=== PATIENT | male | born 1950 | race African-American/Black ===

== ENCOUNTER 2016-04-05 08:18 | Outpatient (CLI) | payer MEDICARE, OTHER ==
[2016-04-05 08:52] LABS: #Basophils 0.1 thou/uL (0.0-0.2); #Eosinphils 0.1 thou/uL (0.0-0.7); #Lymphocytes 2.7 thou/uL (1.20-3.40); #Monocytes 0.8 thou/uL (0.11-0.59); #Neutrophils 3.9 thou/uL (1.40-6.50); %Basophils 1.3 % (0.0-1.0); %Eosinophils 1.3 % (0.0-10.0); %Monocytes 10.1 % (0.0-10.0); Hematocrit 46.6 % (42.0-52.0); Mean Platelet Volume 6.5 fL (7.4-10.4); Red Blood Cell (RBC) Count 5.45 mill/uL (4.70-6.10); White Blood Cell (WBC) Count 7.6 thou/uL (4.8-10.8)
[2016-04-05 09:11] LABS: ALT (SGPT) 17 U/L (0-55); AST (SGOT) 20 U/L (5-34); Alkaline Phosphatase 62 U/L (40-150); Anion Gap 14 mmol/L (10-20); BUN (Urea Nitrogen) 23 mg/dL (8.4-25.7); Bilirubin, Total 0.5 mg/dL (0.2-1.2); Calc. Creatinine Clearance 0 mL/min (70-130); Calcium 9.5 mg/dL (7.8-10.44); Carbon Dioxide 23 mmol/L (23-31); Chloride 108 mmol/L (98-107); Estimated GFR-MDRD 56; Globulin 3.8 g/dL (2.4-3.5); Hemoglobin A1c 5.8 % (4.0-6.0); LDL Cholesterol, Calculated 57 mg/dL; Protein, Total 7.9 g/dL (5.8-8.1)
[2016-04-05 18:03] LABS: Microalbumin Urine 3.5 mg/dL (0.5-50.0)
== END 2016-04-05 08:19 | disposition home or self-care (01) ==
LOC: BURLAB 08:18
PROVIDERS: ATTEND Nurse Practitioner Family
DX: Z01.818 Encounter for other preprocedural examination (principal); E78.2 Mixed hyperlipidemia; E88.81 Metabolic syndrome and other insulin resistance; Z79.899 Other long term (current) drug therapy
CPT/HCPCS: 36415; 80053; 80061; 82043; 83036; 85025

== ENCOUNTER 2016-06-28 10:09 | Outpatient (CLI) | payer MEDICARE, OTHER ==
[2016-06-28 11:19] LABS: ALT (SGPT) 17 U/L (8-55); AST (SGOT) 23 U/L (5-34); Albumin 4.3 g/dL (3.4-4.8); Alkaline Phosphatase 79 U/L (40-150); Bilirubin, Direct 0.2 mg/dL (0.1-0.3); Bilirubin, Total 0.5 mg/dL (0.2-1.2); Cardiac Risk 3.9 (Less than 4.5); Cholesterol 122 mg/dl (< 200 Desired); HDL Cholesterol 31 mg/dL (>60 Neg Risk); LDL Cholesterol, Calculated 66 mg/dL; Protein, Total 8.3 g/dL (5.8-8.1); Triglycerides 125 mg/dL (Less than 150)
== END 2016-06-28 10:10 | disposition home or self-care (01) ==
LOC: BURLAB 10:09
PROVIDERS: ATTEND Internal Medicine Cardiovascular Disease
DX: Z01.810 Encounter for preprocedural cardiovascular examination (principal); I25.10 Atherosclerotic heart disease of native coronary artery without angina pectoris; E11.22 Type 2 diabetes mellitus with diabetic chronic kidney disease; N18.3 Chronic kidney disease, stage 3 (moderate)
CPT/HCPCS: 36415; 80061; 80076

== ENCOUNTER 2016-10-03 11:51 | Outpatient (CLI) | payer MEDICARE, OTHER ==
[2016-10-03 12:28] LABS: Hemoglobin A1c 5.8 % (4.0-6.0)
[2016-10-03 12:40] LABS: ALT (SGPT) 18 U/L (8-55); AST (SGOT) 18 U/L (5-34); Albumin 4.2 g/dL (3.4-4.8); Alkaline Phosphatase 74 U/L (40-150); Anion Gap 16 mmol/L (10-20); BUN (Urea Nitrogen) 16 mg/dL (8.4-25.7); Bilirubin, Total 0.6 mg/dL (0.2-1.2); Calc. Creatinine Clearance 0 mL/min (70-130); Calcium 9.7 mg/dL (7.8-10.44); Carbon Dioxide 23 mmol/L (23-31); Cardiac Risk 3.1 (Less than 4.5); Chloride 106 mmol/L (98-107); Cholesterol 119 mg/dl (< 200 Desired); Estimated GFR-MDRD 75; Globulin 3.8 g/dL (2.4-3.5); Glucose 115 mg/dL (80-115); HDL Cholesterol 39 mg/dL (>60 Neg Risk); LDL Cholesterol, Calculated 62 mg/dL; Potassium 4.1 mmol/L (3.5-5.1); Sodium 141 mmol/L (136-145); Triglycerides 89 mg/dL (Less than 150)
== END 2016-10-03 11:52 | disposition home or self-care (01) ==
LOC: BURLAB 11:51
PROVIDERS: ATTEND Family Medicine
DX: E88.81 Metabolic syndrome and other insulin resistance (principal); E78.2 Mixed hyperlipidemia; N18.3 Chronic kidney disease, stage 3 (moderate); R73.09 Other abnormal glucose
CPT/HCPCS: 36415; 80053; 80061; 83036

== ENCOUNTER 2016-11-13 15:23 | Outpatient (CLI) | payer MEDICARE, OTHER ==
--- NOTE | 2016-11-13 17:40 | RAD ---
LEFT HAND THREE VIEWS: Date: 11-13-16 FINDINGS: No fracture was seen. Soft tissue swelling is seen over the fifth MCP joint, but the underlying bone s and joint appear intact. The carpal bones are not displaced optimally, but no abnormalities here w ere appreciated. IMPRESSION: Soft tissue swelling but no acute bony finding. POS: HOME
== END 2016-11-13 15:24 | disposition home or self-care (01) ==
LOC: BURRAD 15:23
PROVIDERS: ATTEND Family Medicine
DX: M25.842 Other specified joint disorders, left hand (principal)

== ENCOUNTER 2017-08-16 13:33 | Inpatient (IN) | payer MEDICARE, OTHER ==
[2017-08-16] MEDS ORDERED: Prevnar 13-Val Conj/PF 0.5 ML SYRINGE IM ONE (17:30)
[2017-08-16] MEDS ORDERED: HYDROcodone/Acetaminophen 10/325 mg Tablet PO PRN (20:16)
[2017-08-16] MEDS ORDERED: Senokot 8.6 MG TAB PO PRN (20:18)
[2017-08-16] MEDS ORDERED: Dextrose 50% Abboject 50 ML SYRINGE SLOW IVP PRN (20:20)
[2017-08-16] MEDS ORDERED: Dextrose 5% in Water 1,000 ML IV PRN (20:20)
[2017-08-16] MEDS ORDERED: HumaLOG 300 UNITS/3 ML VIAL SC PRN ×2 (20:20)
[2017-08-16] MEDS: HYDROcodone/Acetaminophen 10/325 mg Tablet PO PRN (20:26)
[2017-08-16] MEDS: Pregabalin 75 MG CAP PO SCH (22:01)
[2017-08-16] MEDS: Aspirin 325 MG TAB PO SCH (22:01)
[2017-08-16] MEDS: Rosuvastatin 10 MG TAB PO SCH (22:01)
--- NOTE | 2017-08-17 02:44 | HP ---
DATE OF ADMISSION: 08/16/2017 REASON FOR ADMISSION: Continued rehab status post right hip replacement. HISTORY OF PRESENT ILLNESS: Patient is extremely pleasant 66-year-old -Greek male with a l ongstanding history of progressive degenerative arthritis of the right hip. He failed a conservative treatment and thus underwent elective right hip replacement. Postoperatively, patient had no signif icant complications, but had significant pain and weakness and thus required further inpatient stay i n a swing bed assisted facility and thus was transferred to [facility] for continued physical therapy and occupational therapy. PAST MEDICAL HISTORY: Includes non-insulin dependent diabetes mellitus, gout, osteoarthritis, mild r enal insufficiency, abscess to the finger requiring I&D antibiotics with MRSA history. PAST SURGICAL HISTORY: Includes a previous back surgery and right knee total replacement one year ag o. CURRENT MEDICATIONS: Include amlodipine 10 mg 1 tablet daily, Protonix 40 mg daily, metformin 500 mg daily, hydrochlorothiazide 25 mg daily, Crestor 20 mg at bedtime, Lyrica 150 mg p.o. b.i.d., Celebre x 200 mg daily. ALLERGIES: No known drug allergies. FAMILY HISTORY: Noncontributory. SOCIAL HISTORY: Patient has no significant history of alcohol or social drug use. He is independent in all activities of daily living but retired prior to his recent hospital admission. REVIEW OF SYSTEMS: Patient denies any URI-like symptoms, no recent visual changes. No chest pain or shortness of breath, no fevers, chills or night sweats. No nausea, vomiting or diarrhea. Appetite has been good with normal bowel movements. Patient denies any recent rash. He denies depression. John salazar does report some slight decreased sensation to the extremities and some paresthesias in her extremi ties for which he takes as Lyrica. Patient denies any dysuria, hematuria or change in urinary freque ncy. No increased back pain. Patient reports his hip pain has been controlled with current medicati ons with occasional mild exacerbations. PHYSICAL EXAMINATION: GENERAL: -Greek male, alert and oriented x3, in no obvious distress. VITAL SIGNS: Temperature 97.7, pulse 84, respiratory rate 16, O2 is 98% on room air, blood pressure 133/71. HEENT: Atraumatic, normocephalic. Extraocular movements are intact. Pupils are equal, round, and r eactive to light and accommodation. NECK: Supple, no masses palpated. CHEST: Clear to auscultation bilaterally without rales or wheezes. HEART: Regular rate and rhythm without murmurs, rubs, nor gallops. ABDOMEN: Soft, nontender, nondistended, no masses were palpated. No tenderness to palpation. Bowel sounds are positive in all 4 quadrants. EXTREMITIES: Right lateral hip had incision site that was bandaged well without any obvious signific ant drainage. There was trace edema at the ankles bilaterally, right slightly greater than left. No calf tenderness was noted and Homans' was negative. ASSESSMENT AND PLAN: 1. Status post right hip replacement. PT and OT has been ordered. Patient will have DVT prophylaxi s with aspirin 325 mg p.o. b.i.d. as well as SCDs to the lower extremities. 2. Diabetes mellitus. We will continue patient on metformin. We will do Accu-Cheks before meals an d at bedtime with a sliding scale insulin as needed. 3. Hypertension, presently controlled. We will continue his amlodipine and hydrochlorothiazide. DISPOSITION: Plan is for the patient to be discharged to home after he improves, likely will need ap proximately 7-10 days of inpatient therapy.
[2017-08-17] MEDS: HYDROcodone/Acetaminophen 10/325 mg Tablet PO PRN ×2 (09:05→15:10)
[2017-08-17] MEDS: metFORMIN 500 MG TAB PO SCH (09:06)
[2017-08-17] MEDS: Amlodipine 10 MG TAB PO SCH (09:06)
[2017-08-17] MEDS: Pregabalin 75 MG CAP PO SCH ×2 (09:07→20:28)
[2017-08-17] MEDS: Aspirin 325 MG TAB PO SCH ×2 (09:09→20:27)
[2017-08-17] MEDS: Hydrochlorothiazide 25 MG TAB PO SCH (09:09)
[2017-08-17] MEDS: Rosuvastatin 10 MG TAB PO SCH (20:27)
[2017-08-18] MEDS: HYDROcodone/Acetaminophen 10/325 mg Tablet PO PRN (06:31)
[2017-08-18] MEDS: Amlodipine 10 MG TAB PO SCH (08:59)
[2017-08-18] MEDS: Aspirin 325 MG TAB PO SCH ×2 (09:00→20:26)
[2017-08-18] MEDS: Hydrochlorothiazide 25 MG TAB PO SCH (09:00)
[2017-08-18] MEDS: metFORMIN 500 MG TAB PO SCH (09:00)
[2017-08-18] MEDS: Pregabalin 75 MG CAP PO SCH ×2 (09:01→20:26)
[2017-08-18] MEDS: Rosuvastatin 10 MG TAB PO SCH (20:25)
[2017-08-18] MEDS: Senokot 8.6 MG TAB PO PRN (20:34)
[2017-08-19] MEDS: HYDROcodone/Acetaminophen 10/325 mg Tablet PO PRN ×2 (06:08→19:43)
[2017-08-19] MEDS: Senokot 8.6 MG TAB PO PRN (09:06)
[2017-08-19] MEDS: Amlodipine 10 MG TAB PO SCH (09:06)
[2017-08-19] MEDS: Hydrochlorothiazide 25 MG TAB PO SCH (09:07)
[2017-08-19] MEDS: Pregabalin 75 MG CAP PO SCH ×2 (09:07→21:15)
[2017-08-19] MEDS: Aspirin 325 MG TAB PO SCH ×2 (09:08→21:15)
[2017-08-19] MEDS: metFORMIN 500 MG TAB PO SCH (09:08)
[2017-08-19] MEDS: Rosuvastatin 10 MG TAB PO SCH (21:15)
[2017-08-20] MEDS: HYDROcodone/Acetaminophen 10/325 mg Tablet PO PRN ×2 (05:49→20:39)
[2017-08-20 05:57] VITALS: BMI 37.8
[2017-08-20] MEDS: Pregabalin 75 MG CAP PO SCH ×2 (08:33→20:36)
[2017-08-20] MEDS: Amlodipine 10 MG TAB PO SCH (08:33)
[2017-08-20] MEDS: metFORMIN 500 MG TAB PO SCH (08:33)
[2017-08-20] MEDS: Aspirin 325 MG TAB PO SCH ×2 (08:33→20:36)
[2017-08-20] MEDS: Hydrochlorothiazide 25 MG TAB PO SCH (08:33)
[2017-08-20] MEDS: Senokot 8.6 MG TAB PO PRN (08:34)
[2017-08-20] MEDS: Milk Of Magnesia 30 ML UDCUP PO PRN (08:34)
[2017-08-20] MEDS: Rosuvastatin 10 MG TAB PO SCH (20:36)
[2017-08-21] MEDS: HYDROcodone/Acetaminophen 10/325 mg Tablet PO PRN ×2 (08:08→17:01)
[2017-08-21] MEDS: Amlodipine 10 MG TAB PO SCH (08:08)
[2017-08-21] MEDS: Pregabalin 75 MG CAP PO SCH ×2 (08:09→20:34)
[2017-08-21] MEDS: Aspirin 325 MG TAB PO SCH ×2 (08:10→20:33)
[2017-08-21] MEDS: Senokot 8.6 MG TAB PO PRN (08:10)
[2017-08-21] MEDS: Hydrochlorothiazide 25 MG TAB PO SCH (08:10)
[2017-08-21] MEDS: metFORMIN 500 MG TAB PO SCH (08:10)
[2017-08-21] MEDS: Rosuvastatin 10 MG TAB PO SCH (20:34)
[2017-08-22] MEDS: HYDROcodone/Acetaminophen 10/325 mg Tablet PO PRN ×3 (00:28→17:32)
[2017-08-22] MEDS: Pregabalin 75 MG CAP PO SCH ×2 (09:08→20:04)
[2017-08-22] MEDS: Aspirin 325 MG TAB PO SCH ×2 (09:08→20:04)
[2017-08-22] MEDS: Senokot 8.6 MG TAB PO PRN (09:09)
[2017-08-22] MEDS: metFORMIN 500 MG TAB PO SCH (09:09)
[2017-08-22] MEDS: Amlodipine 10 MG TAB PO SCH (09:10)
[2017-08-22] MEDS: Hydrochlorothiazide 25 MG TAB PO SCH (09:10)
[2017-08-22] MEDS: Rosuvastatin 10 MG TAB PO SCH (20:03)
[2017-08-23] MEDS: HYDROcodone/Acetaminophen 10/325 mg Tablet PO PRN ×2 (08:11→20:26)
[2017-08-23] MEDS: Senokot 8.6 MG TAB PO PRN (08:11)
[2017-08-23] MEDS: Hydrochlorothiazide 25 MG TAB PO SCH (08:12)
[2017-08-23] MEDS: Amlodipine 10 MG TAB PO SCH (08:12)
[2017-08-23] MEDS: metFORMIN 500 MG TAB PO SCH (08:12)
[2017-08-23] MEDS: Pregabalin 75 MG CAP PO SCH ×2 (08:12→20:27)
[2017-08-23] MEDS: Aspirin 325 MG TAB PO SCH ×2 (08:12→20:28)
[2017-08-23] MEDS: Rosuvastatin 10 MG TAB PO SCH (20:28)
[2017-08-24] MEDS: HYDROcodone/Acetaminophen 10/325 mg Tablet PO PRN ×2 (07:15→20:18)
[2017-08-24] MEDS: Aspirin 325 MG TAB PO SCH ×2 (08:04→20:17)
[2017-08-24] MEDS: Amlodipine 10 MG TAB PO SCH (08:05)
[2017-08-24] MEDS: Hydrochlorothiazide 25 MG TAB PO SCH (08:05)
[2017-08-24] MEDS: metFORMIN 500 MG TAB PO SCH ×2 (08:05→08:06)
[2017-08-24] MEDS: Milk Of Magnesia 30 ML UDCUP PO PRN ×2 (08:06→20:17)
[2017-08-24] MEDS ORDERED: Pregabalin 75 MG CAP ONE (09:00)
[2017-08-24] MEDS: Pregabalin 75 MG CAP PO SCH ×2 (09:24→20:19)
[2017-08-24] MEDS: Senokot 8.6 MG TAB PO PRN (20:17)
[2017-08-24] MEDS: Rosuvastatin 10 MG TAB PO SCH (20:18)
[2017-08-25] MEDS: Amlodipine 10 MG TAB PO SCH (08:20)
[2017-08-25] MEDS: Hydrochlorothiazide 25 MG TAB PO SCH (08:22)
[2017-08-25] MEDS: Pregabalin 75 MG CAP PO SCH ×2 (08:22→20:45)
[2017-08-25] MEDS: metFORMIN 500 MG TAB PO SCH (08:22)
[2017-08-25] MEDS: Aspirin 325 MG TAB PO SCH ×2 (08:22→20:51)
[2017-08-25] MEDS: Milk Of Magnesia 30 ML UDCUP PO PRN (08:28)
[2017-08-25] MEDS: Senokot 8.6 MG TAB PO PRN (08:28)
[2017-08-25] MEDS: HYDROcodone/Acetaminophen 10/325 mg Tablet PO PRN ×2 (08:29→20:44)
[2017-08-25] MEDS: Rosuvastatin 10 MG TAB PO SCH (20:51)
[2017-08-26] MEDS: Pregabalin 75 MG CAP PO SCH ×2 (08:54→21:09)
[2017-08-26] MEDS: Amlodipine 10 MG TAB PO SCH (08:55)
[2017-08-26] MEDS: metFORMIN 500 MG TAB PO SCH (08:55)
[2017-08-26] MEDS: Hydrochlorothiazide 25 MG TAB PO SCH (08:56)
[2017-08-26] MEDS: HYDROcodone/Acetaminophen 10/325 mg Tablet PO PRN (09:02)
[2017-08-26] MEDS: Aspirin 325 MG TAB PO SCH ×2 (09:06→21:04)
[2017-08-26] MEDS: Rosuvastatin 10 MG TAB PO SCH (21:02)
[2017-08-27 05:25] VITALS: TEMP 99.3
[2017-08-27] MEDS: Senokot 8.6 MG TAB PO PRN (08:30)
[2017-08-27] MEDS: Pregabalin 75 MG CAP PO SCH (08:30)
[2017-08-27] MEDS: Amlodipine 10 MG TAB PO SCH (08:31)
[2017-08-27] MEDS: Hydrochlorothiazide 25 MG TAB PO SCH (08:31)
[2017-08-27] MEDS: metFORMIN 500 MG TAB PO SCH (08:31)
[2017-08-27] MEDS: HYDROcodone/Acetaminophen 10/325 mg Tablet PO PRN (08:32)
[2017-08-27 08:33] VITALS: BP 116/79
[2017-08-27] MEDS: Aspirin 325 MG TAB PO SCH (09:58)
== END 2017-08-27 15:30 | disposition home or self-care (01) | DRG 561 ==
LOC: UNDOADMIN 16:25 → BURMED 16:25
PROVIDERS: ADMIT Family Medicine; ATTEND Family Medicine
DX: Z47.1 Aftercare following joint replacement surgery (principal); Z96.641 Presence of right artificial hip joint; I10 Essential (primary) hypertension; E11.9 Type 2 diabetes mellitus without complications; M10.9 Gout, unspecified; R53.1 Weakness; G89.18 Other acute postprocedural pain; Z86.14 Personal history of Methicillin resistant Staphylococcus aureus infection; Z79.84 Long term (current) use of oral hypoglycemic drugs; Z79.899 Other long term (current) drug therapy; Z96.651 Presence of right artificial knee joint
CPT/HCPCS: 36416; G8978-GP-CK; G8979-GP-CI; G8987-GO-CK; G8988-GO-CI

== ENCOUNTER 2020-05-06 20:24 | Emergency (ER) | payer MEDICARE, OTHER ==
[2020-05-06] MEDS ORDERED: Ibuprofen 800 MG TAB ONE (21:08)
[2020-05-06 21:24] LABS: ALT (SGPT) 33 U/L (8-55); AST (SGOT) 34 U/L (5-34); Albumin 4.2 g/dL (3.4-4.8); Alkaline Phosphatase 52 U/L (40-110); Anion Gap 17 mmol/L (10-20); BUN (Urea Nitrogen) 23 mg/dL (8.4-25.7); Bilirubin, Total 0.4 mg/dL (0.2-1.2); Calc. Creatinine Clearance 0 mL/min (70-130); Calcium 9.2 mg/dL (7.8-10.44); Carbon Dioxide 22 mmol/L (23-31); Chloride 106 mmol/L (98-107); Glucose 149 mg/dL (80-115); Protein, Total 8.2 g/dL (5.8-8.1); Sodium 141 mmol/L (136-145)
[2020-05-06 21:25] LABS: Hemoglobin 15.5 g/dL (14.0-18.0); Mean Corpuscular HGB CONC 33.1 g/dL (32.0-36.0); Mean Corpuscular Hemoglobin 29.6 pg (27.0-31.0); Mean Corpuscular Volume 89.4 fL (78.0-98.0); Mean Platelet Volume 7.5 fL (7.4-10.4); Platelet Count 204 thou/uL (130-400); RBC Distribution Width 13.1 % (11.5-14.5); Red Blood Cell (RBC) Count 5.25 mill/uL (4.70-6.10); White Blood Cell (WBC) Count 8.1 thou/uL (4.8-10.8)
[2020-05-06 21:36] LABS: Band 4 % (5-11); Eosinophils 1 % (0-10); Lymphocytes 17 % (21-51); MDiff Complete? YES; Metamyelocyte 2 % (0-0); Monocytes 10 % (0-10); Neutrophil 63 % (42-75); Platelet Morphology Comment Appears Adequate; RBC Morphology Normal; Reactive Lymphocytes 3 % (0-10); Vacuoles SLIGHT
[2020-05-06 21:41] LABS: CKMB 0.5 ng/mL (0-6.6)
== END 2020-05-06 23:00 | disposition short-term general hospital (02) ==
LOC: BURERS 20:24
DX: R50.9 Fever, unspecified (principal); R77.8 Other specified abnormalities of plasma proteins; R60.0 Localized edema; K43.9 Ventral hernia without obstruction or gangrene; E11.9 Type 2 diabetes mellitus without complications; E78.5 Hyperlipidemia, unspecified; I10 Essential (primary) hypertension; F17.220 Nicotine dependence, chewing tobacco, uncomplicated; R06.02 Shortness of breath
CPT/HCPCS: 71045; 80053; 82553; 83605; 83880; 84484; 85025; 87040; 87804; 93005; 94760

== ENCOUNTER 2021-06-03 12:41 | Inpatient (IN) | payer MEDICARE, OTHER, MEDICAID ==
[2021-06-03] MEDS ORDERED: Icosapent Ethyl [Vascepa] 1 GM Capsule PO SCH (17:15)
[2021-06-03] MEDS: metFORMIN 500 MG TAB PO SCH (17:34)
[2021-06-03] MEDS: Pregabalin 75 MG CAP PO SCH (20:47)
[2021-06-03] MEDS: Acetaminophen 325 MG TAB PO PRN (20:48)
[2021-06-03] MEDS: Aspirin 81 mg Enteric Coated Tablet PO SCH (20:48)
[2021-06-03] MEDS: Rosuvastatin 10 MG TAB PO SCH (20:48)
[2021-06-04 05:53] LABS: ALT (SGPT) 20 U/L (8-55); AST (SGOT) 28 U/L (5-34); Albumin 3.7 g/dL (3.4-4.8); Alkaline Phosphatase 71 U/L (40-110); Anion Gap 17 mmol/L (10-20); BUN (Urea Nitrogen) 27 mg/dL (8.4-25.7); Bilirubin, Total 0.6 mg/dL (0.2-1.2); Calc. Creatinine Clearance 102 mL/min (70-130); Calcium 9.3 mg/dL (7.8-10.44); Carbon Dioxide 24 mmol/L (23-31); Chloride 102 mmol/L (98-107); Globulin 3.9 g/dL (2.4-3.5); Glucose 122 mg/dL (80-115); Potassium 3.8 mmol/L (3.5-5.1); Protein, Total 7.6 g/dL (5.8-8.1); Sodium 139 mmol/L (136-145); Uric Acid 5.9 mg/dL (3.5-7.2)
[2021-06-04 06:01] LABS: #Basophils 0.1 thou/uL (0.0-0.2); #Eosinphils 0.1 thou/uL (0.0-0.7); #Neutrophils 4.3 thou/uL (1.40-6.50); %Basophils 1.5 % (0.0-1.0); %Eosinophils 1.5 % (0.0-10.0); %Lymphocytes 35.2 % (21.0-51.0); %Monocytes 11.4 % (0.0-10.0); %Neutrophils 50.5 % (42.0-75.0); Hemoglobin 13.1 g/dL (14.0-18.0); Mean Corpuscular Hemoglobin 29.7 pg (27.0-31.0); Mean Corpuscular Volume 89.8 fL (78.0-98.0); Mean Platelet Volume 7.3 fL (7.4-10.4); Platelet Count 262 thou/uL (130-400); RBC Distribution Width 13.7 % (11.5-14.5); Red Blood Cell (RBC) Count 4.43 mill/uL (4.70-6.10); White Blood Cell (WBC) Count 8.6 thou/uL (4.8-10.8)
[2021-06-04] MEDS ORDERED: Icosapent Ethyl [Vascepa] 1 GM Capsule PO SCH (08:00)
[2021-06-04] MEDS: Aspirin 81 mg Enteric Coated Tablet PO SCH ×2 (08:18→21:04)
[2021-06-04] MEDS: Tamsulosin HCl 0.4 MG CAP PO SCH (08:18)
[2021-06-04] MEDS: metFORMIN 500 MG TAB PO SCH ×2 (08:18→16:47)
[2021-06-04] MEDS: Pregabalin 75 MG CAP PO SCH ×2 (08:19→21:04)
[2021-06-04] MEDS: NIFEdipine XL 30 MG TAB PO SCH (08:20)
[2021-06-04] MEDS: Colchicine 0.6 MG TAB PO SCH (08:20)
[2021-06-04] MEDS ORDERED: ETODOLAC 400 MG PO SCH (09:00)
[2021-06-04] MEDS: traMADol HCl 50 MG TAB PO PRN ×3 (10:32→22:55)
[2021-06-04] MEDS: Acetaminophen 325 MG TAB PO PRN ×3 (10:33→21:04)
[2021-06-04] MEDS: Rosuvastatin 10 MG TAB PO SCH (21:03)
[2021-06-05] MEDS: Acetaminophen 325 MG TAB PO PRN ×3 (05:54→19:38)
[2021-06-05] MEDS: traMADol HCl 50 MG TAB PO PRN ×2 (05:54→19:37)
[2021-06-05] MEDS: metFORMIN 500 MG TAB PO SCH ×2 (10:08→17:34)
[2021-06-05] MEDS: NIFEdipine XL 30 MG TAB PO SCH (10:09)
[2021-06-05] MEDS: Tamsulosin HCl 0.4 MG CAP PO SCH (10:09)
[2021-06-05] MEDS: Aspirin 81 mg Enteric Coated Tablet PO SCH ×2 (10:09→21:08)
[2021-06-05] MEDS: Pregabalin 75 MG CAP PO SCH ×2 (10:10→21:07)
[2021-06-05] MEDS: Colchicine 0.6 MG TAB PO SCH (10:11)
[2021-06-05] MEDS: Ondansetron ODT 4 MG TAB PO PRN (20:08)
[2021-06-05] MEDS: Rosuvastatin 10 MG TAB PO SCH (21:08)
[2021-06-06] MEDS: traMADol HCl 50 MG TAB PO PRN ×2 (05:07→17:10)
[2021-06-06] MEDS: Acetaminophen 325 MG TAB PO PRN ×2 (05:08→17:10)
[2021-06-06] MEDS: metFORMIN 500 MG TAB PO SCH ×2 (07:42→17:09)
[2021-06-06] MEDS: Colchicine 0.6 MG TAB PO SCH (07:42)
[2021-06-06] MEDS: Pregabalin 75 MG CAP PO SCH ×2 (07:43→21:37)
[2021-06-06] MEDS: NIFEdipine XL 30 MG TAB PO SCH (07:43)
[2021-06-06] MEDS: Tamsulosin HCl 0.4 MG CAP PO SCH (07:43)
[2021-06-06] MEDS: Aspirin 81 mg Enteric Coated Tablet PO SCH ×2 (07:43→21:37)
[2021-06-06] MEDS: Ondansetron ODT 4 MG TAB PO PRN (13:09)
[2021-06-06 16:15] VITALS: BMI 39.2
[2021-06-06] MEDS: Rosuvastatin 10 MG TAB PO SCH (21:37)
[2021-06-07] MEDS: Acetaminophen 325 MG TAB PO PRN ×3 (01:22→18:02)
[2021-06-07] MEDS: traMADol HCl 50 MG TAB PO PRN ×3 (01:23→18:02)
[2021-06-07] MEDS: Aspirin 81 mg Enteric Coated Tablet PO SCH ×2 (08:59→21:39)
[2021-06-07] MEDS: NIFEdipine XL 30 MG TAB PO SCH (08:59)
[2021-06-07] MEDS: Tamsulosin HCl 0.4 MG CAP PO SCH (08:59)
[2021-06-07] MEDS: metFORMIN 500 MG TAB PO SCH ×2 (08:59→16:47)
[2021-06-07] MEDS: Fish Oil 1,000 MG CAP PO SCH (08:59)
[2021-06-07] MEDS: Pregabalin 75 MG CAP PO SCH ×2 (09:00→21:39)
[2021-06-07] MEDS: Colchicine 0.6 MG TAB PO SCH (09:00)
[2021-06-07] MEDS: Rosuvastatin 10 MG TAB PO SCH (21:39)
[2021-06-08] MEDS: Aspirin 81 mg Enteric Coated Tablet PO SCH ×2 (08:50→20:06)
[2021-06-08] MEDS: NIFEdipine XL 30 MG TAB PO SCH (08:51)
[2021-06-08] MEDS: metFORMIN 500 MG TAB PO SCH ×2 (08:51→18:23)
[2021-06-08] MEDS: Tamsulosin HCl 0.4 MG CAP PO SCH (08:51)
[2021-06-08] MEDS: Pregabalin 75 MG CAP PO SCH ×2 (08:51→20:06)
[2021-06-08] MEDS: Colchicine 0.6 MG TAB PO SCH (08:51)
[2021-06-08] MEDS: Fish Oil 1,000 MG CAP PO SCH (08:51)
[2021-06-08] MEDS: Rosuvastatin 10 MG TAB PO SCH (20:05)
[2021-06-09 05:03] VITALS: BP 128/68; TEMP 99.4
[2021-06-09] MEDS: Tamsulosin HCl 0.4 MG CAP PO SCH (07:49)
[2021-06-09] MEDS: NIFEdipine XL 30 MG TAB PO SCH (07:49)
[2021-06-09] MEDS: Aspirin 81 mg Enteric Coated Tablet PO SCH (07:50)
[2021-06-09] MEDS: Colchicine 0.6 MG TAB PO SCH (07:50)
[2021-06-09] MEDS: Fish Oil 1,000 MG CAP PO SCH (07:50)
[2021-06-09] MEDS: metFORMIN 500 MG TAB PO SCH (07:51)
[2021-06-09] MEDS: Pregabalin 75 MG CAP PO SCH (07:51)
== END 2021-06-09 11:25 | disposition home or self-care (01) | DRG 561 ==
LOC: BURMED 16:35
PROVIDERS: ADMIT Family Medicine; ATTEND Family Medicine
DX: Z47.1 Aftercare following joint replacement surgery (principal); I10 Essential (primary) hypertension; E78.5 Hyperlipidemia, unspecified; N40.0 Benign prostatic hyperplasia without lower urinary tract symptoms; E66.01 Morbid (severe) obesity due to excess calories; M10.9 Gout, unspecified; E11.42 Type 2 diabetes mellitus with diabetic polyneuropathy; K21.9 Gastro-esophageal reflux disease without esophagitis; Z83.3 Family history of diabetes mellitus; Z79.899 Other long term (current) drug therapy; Z79.84 Long term (current) use of oral hypoglycemic drugs; Z79.82 Long term (current) use of aspirin; Z79.891 Long term (current) use of opiate analgesic; Z82.49 Family history of ischemic heart disease and other diseases of the circulatory system
CPT/HCPCS: 36415; 36416; 80053; 84550; 85025; Q0162

== ENCOUNTER 2024-01-10 16:02 | Inpatient (IN) | payer MEDICARE ==
[2024-01-14] MEDS ORDERED: Acetaminophen 325 MG TAB PO PRN (22:07)
[2024-01-14] MEDS ORDERED: HYDROcodone/Acetaminophen 5/325 mg Tablet PO PRN (22:07)
[2024-01-14 22:27] VITALS: BMI 36.3
[2024-01-15] MEDS ORDERED: Acetaminophen 325 MG TAB PO PRN ×2 (05:18→16:29)
[2024-01-15] MEDS ORDERED: Ondansetron ODT 4 MG TAB PO PRN (05:20)
[2024-01-15] MEDS: Insulin Lispro 100 UNIT/ML 10 ML VIAL SQ SCH (07:34)
[2024-01-15] MEDS: Senokot S 8.6-50 MG TAB PO SCH (08:02)
[2024-01-15] MEDS: Polyethylene Glycol 3350 17 GM Packet PO SCH (08:02)
[2024-01-15] MEDS: Aspirin 81 mg Enteric Coated Tablet PO SCH (08:02)
[2024-01-15] MEDS: HYDROcodone/Acetaminophen 5/325 mg Tablet PO PRN (08:03)
[2024-01-15] MEDS: Ferrous Gluconate 324 MG TAB PO SCH (08:03)
[2024-01-15] MEDS: Icosapent Ethyl 1 GM CAPSULE PO SCH (08:03)
[2024-01-15] MEDS: Tamsulosin HCl 0.4 MG CAP PO SCH (08:03)
[2024-01-15] MEDS: Furosemide 40 MG TAB PO SCH (08:04)
[2024-01-15] MEDS: Carvedilol 25 MG TAB PO SCH (08:04)
[2024-01-15] MEDS: Gabapentin 300 MG CAP PO SCH ×2 (08:04→20:08)
[2024-01-15] MEDS: Pantoprazole DR 40 MG TAB PO SCH (08:04)
[2024-01-15] MEDS: Amoxicillin/Potassium Clav 875 MG TAB PO SCH (08:05)
[2024-01-15] MEDS ORDERED: FLU (Fluad Triv) TS24-25 (65UP)/MF59C/PF 45 MCG/0.5 ML Syringe IM ONE (09:00)
[2024-01-15] MEDS: FLU (Fluad Triv) TS24-25 (65UP)/MF59C/PF 45 MCG/0.5 ML Syringe IM ONE (11:47)
[2024-01-15 11:48] VITALS: BMI 36.3
[2024-01-15] MEDS ORDERED: Glucagon 1 MG/ML KIT IM PRN (14:06)
[2024-01-15] MEDS ORDERED: Dextrose 5% in Water 1,000 ML IV PRN (14:06)
[2024-01-15] MEDS ORDERED: Dextrose 50% Abboject 50 ML SYRINGE SLOW IVP PRN (14:06)
[2024-01-15] MEDS: Insulin Regular, Human 100 UNIT/ML 10 ML VIAL SC PRN (16:53)
[2024-01-15] MEDS: Rosuvastatin 10 MG TAB PO SCH (20:07)
[2024-01-15] MEDS: Lantus 1000 UNITS/10 ML VIAL SC SCH (20:07)
[2024-01-16 05:08] LABS: #Basophils 0.1 thou/uL (0.0-0.2); #Eosinophils 0.1 thou/uL (0.0-0.7); #Lymphocytes 2.1 thou/uL (1.20-3.40); #Monocytes 0.8 thou/uL (0.11-0.59); #Neutrophils 4.7 thou/uL (1.40-6.50); %Basophils 0.8 % (0.0-1.0); %Eosinophils 1.4 % (0.0-10.0); %Lymphocytes 27.2 % (21.0-51.0); %Monocytes 10.5 % (0.0-10.0); %Neutrophils 60.1 % (42.0-75.0); Hematocrit 31.3 % (42.0-52.0); Mean Corpuscular HGB CONC 31.8 g/dL (32.0-36.0); Mean Corpuscular Hemoglobin 27.8 pg (27.0-31.0); Mean Corpuscular Volume 87.3 fl (78.0-98.0); Mean Platelet Volume 6.1 fL (7.4-10.4); Platelet Count 414 10x3/uL (130-400); RBC Distribution Width 13.9 % (11.5-14.5); Red Blood Cell (RBC) Count 3.59 mill/uL (4.70-6.10); White Blood Cell (WBC) Count 7.8 10x3/uL (4.8-10.8)
[2024-01-16 05:57] LABS: ALT (SGPT) 12 U/L (8-55); AST (SGOT) 21 U/L (5-34); Albumin 2.5 g/dL (3.4-4.8); Alkaline Phosphatase 130 U/L (40-110); Anion Gap 16 mmol/L (10-20); BUN (Urea Nitrogen) 41 mg/dL (8.4-25.7); Bilirubin, Total 0.4 mg/dL (0.2-1.2); Calc. Creatinine Clearance 50 mL/min (70-130); Calcium 8.8 mg/dL (7.8-10.44); Carbon Dioxide 22 mmol/L (23-31); Chloride 107 mmol/L (98-107); Estimated GFR 30; Glucose 168 mg/dL (83-110); Potassium 4.6 mmol/L (3.5-5.1); Protein, Total 7.5 g/dL (5.8-8.1); Sodium 140 mmol/L (136-145)
[2024-01-23 06:11] VITALS: BP 147/74; TEMP 98.5
== END 2024-01-23 13:30 | disposition home or self-care (01) | DRG 945 ==
LOC: BURMED 01-14 21:03
PROVIDERS: ADMIT Family Medicine; ATTEND Family Medicine
PROC: F07Z9ZZ Gait Training/Functional Ambulation Treatment (ICD-10-PCS; principal; 2024-01-17)
DX: R53.81 Other malaise (principal); I13.0 Hypertensive heart and chronic kidney disease with heart failure and stage 1 through stage 4 chronic kidney disease, or unspecified chronic kidney disease; I50.32 Chronic diastolic (congestive) heart failure; N39.0 Urinary tract infection, site not specified; N18.4 Chronic kidney disease, stage 4 (severe); R26.89 Other abnormalities of gait and mobility; Z96.652 Presence of left artificial knee joint; E11.22 Type 2 diabetes mellitus with diabetic chronic kidney disease; E11.42 Type 2 diabetes mellitus with diabetic polyneuropathy; E78.5 Hyperlipidemia, unspecified; Z79.899 Other long term (current) drug therapy; Z79.82 Long term (current) use of aspirin; K21.9 Gastro-esophageal reflux disease without esophagitis; N40.0 Benign prostatic hyperplasia without lower urinary tract symptoms; Z86.73 Personal history of transient ischemic attack (TIA), and cerebral infarction without residual deficits; D63.8 Anemia in other chronic diseases classified elsewhere; M19.90 Unspecified osteoarthritis, unspecified site; M10.9 Gout, unspecified; Z79.4 Long term (current) use of insulin
CPT/HCPCS: 36415; 36416; 80053; 85025; 90653; J1815